=== PATIENT | female | born 1975 | race Two or more races ===

== ENCOUNTER 2018-09-16 23:58 | Emergency (ER) | payer OTHER ==
[~2018-09-16] VITALS: Ht 170.2 cm; Wt 117.9 kg
[~2018-09-16 23:58] MED LIST: OMEGA 3 FISH OI1 CAP; URETRON D/S TAB1 TAB
== END 2018-09-17 10:12 | disposition home or self-care (01) ==
LOC: ER 23:58
DX: K52.89 Other specified noninfective gastroenteritis and colitis (principal); E86.0 Dehydration